=== PATIENT | female | born 1950 | race Hispanic/Latino ===

== ENCOUNTER 2017-02-01 01:17 | Observation (INO) | payer BC, MEDICARE ==
[2017-02-01 01:18] VITALS: BMI 26.6
--- NOTE | 2017-02-01 01:34 | ED PDOC ---
Arrival/HPI <Landry Conley - Last Filed: 02/01/17 03:20> - General Historian: Patient - History of Present Illness Time/Duration: 1-3 hours Symptom Onset: Gradual Symptom Course: Worsening Quality: Tightness Severity Level: Severe Activities at Onset: Light Context: Home <Meenakshi Glover - Last Filed: 02/01/17 05:22> - General Chief Complaint: Shortness Of Breath Time Seen by Provider: 02/01/17 01:27 - History of Present Illness Narrative History of Present Illness (Text): 02/01/17 02:20 This is a 67Y F with PMH of Hypertension and Hypercholesterolemia who came to emergency department for shortness of breath x 3 hours. The patient states she was sitting in her bed and could not fall asleep and was feeling shortness of breath with chest tightness. The tightness radiated up to her R jaw. She reports she has been feeling this tightness in her chest all day and has been having a dry cough, but has been worsening the past few hours. She denies sick contacts, fever, chills, n/v/d, numbness/tingling, or vision changes. She thought her cough was secondary to allergies. She did not do anything to make it better and does not know what makes it worse. (Meenakshi Glover) Past Medical History - Provider Review Nursing Documentation Reviewed: Yes - Travel History Have you recently traveled outside [place] w/in the past 3 mons?: No - Infectious Disease Hx of Infectious Diseases: None - Cardiac Hx Hypertension: Yes - HEENT Other/Comment: WEARS RX GLASSES - Renal Hx Renal Failure: (one kidney, renal problems) - Hematological/Oncological Hx Blood Transfusions: No Hx Blood Transfusion Reaction: No - Musculoskeletal/Rheumatological Hx Falls: Yes (Fell today) Hx Fractures: Yes (multiple fractures of bilateral feet) - Gastrointestinal Other/Comment: N/V FOR 5 DAYS 10-10-12 - Genitourinary/Gynecological Hx Genitourinary Disorders: Yes Hx Urinary Tract Infection: Yes (H/O) - Psychiatric Hx Depression: No Hx Emotional Abuse: No Hx Physical Abuse: No Hx Substance Use: No - Surgical History Hx Kidney Transplant: (donated a kidney) Hx Orthopedic Surgery: Yes (RIGHT FOOT SURGERY TORN LIGAMENT) - Anesthesia Hx Anesthesia Reactions: No Hx Malignant Hyperthermia: No - Suicidal Assessment Feels Threatened In Home Enviroment: No <Meenakshi Glover - Last Filed: 02/01/17 05:22> Family/Social History - Physician Review Nursing Documentation Reviewed: Yes Family/Social History: CAD/OK, Blood Clots Smoking Status: Former Smoker Hx Alcohol Use: No Hx Substance Use: No <Meenakshi Glover - Last Filed: 02/01/17 05:22> Allergies/Home Meds <Landry Conley - Last Filed: 02/01/17 03:20> <Meenakshi Glover - Last Filed: 02/01/17 05:22> Allergies/Adverse Reactions: Allergies No Known Allergies Allergy (Verified 02/01/17 01:33) Home Medications: Home Meds Medication Instructions Recorded Confirmed Atorvastatin [Lipitor] 10 mg PO DAILY 02/01/17 02/01/17 Furosemide [Lasix] 20 mg PO DAILY 02/01/17 02/01/17 amLODIPine [Norvasc] 10 mg PO DAILY 02/01/17 02/01/17 Review of Systems - Physician Review All systems were reviewed & negative as marked: Yes - Review of Systems Constitutional: Normal. absent: Fatigue, Fevers Eyes: Normal. absent: Vision Changes ENT: Normal. absent: Hearing Changes Respiratory: SOB, Cough. absent: Sputum Cardiovascular: Chest Pain. absent: Palpitations Gastrointestinal: Normal. absent: Abdominal Pain, Nausea, Vomiting Genitourinary Female: Normal Musculoskeletal: Normal. absent: Arthralgias, Myalgias Neurological: Dizziness. absent: Headache Psychiatric: Normal. absent: Anxiety, Depression <Meenakshi Glover - Last Filed: 02/01/17 05:22> Physical Exam <Landry oCnley - Last Filed: 02/01/17 03:20> Vital Signs Reviewed: Yes Temperature: Afebrile Blood Pressure: Normal Pulse: Tachycardic Respiratory Rate: Normal Appearance: Positive for: Well-Appearing, Non-Toxic, Comfortable Pain Distress: None Mental Status: Positive for: Alert and Oriented X 3 - Systems Exam Head: Present: Atraumatic, Normocephalic Pupils: Present: PERRL Extroacular Muscles: Present: EOMI Conjunctiva: Present: Normal Mouth: Present: Moist Mucous Membranes Neck: Present: Normal Range of Motion Respiratory/Chest: Present: Clear to Auscultation, Good Air Exchange. No: Respiratory Distress, Accessory Muscle Use, Wheezes, Rales, Rhonchi Cardiovascular: Present: Regular Rate and Rhythm, Normal S1, S2. No: Murmurs Abdomen: Present: Normal Bowel Sounds. No: Tenderness, Distention, Peritoneal Signs Back: Present: Normal Inspection Upper Extremity: Present: Normal Inspection. No: Cyanosis, Edema Lower Extremity: Present: Normal Inspection. No: Edema Neurological: Present: GCS=15, CN II-XII Intact, Speech Normal Skin: Present: Warm, Dry, Normal Color. No: Rashes Psychiatric: Present: Alert, Oriented x 3, Normal Insight, Normal Concentration <Meenakshi Glover - Last Filed: 02/01/17 05:22> Vital Signs Temp Pulse Resp BP Pulse Ox 02/01/17 05:04 223 H 02/01/17 03:34 98 H 22 151/76 H 94 L 02/01/17 01:30 22 94 L 02/01/17 01:28 99.3 F 111 H 24 147/69 99 Medical Decision Making - Lab Interpretations I have reviewed the lab results: Yes - RAD Interpretation Director Volunteer Services: ED Physician - EKG Interpretation Interpreted by ED Physician: Yes Type: 12 lead EKG <Landry Conley - Last Filed: 02/01/17 03:20> Re-evaluation Time: 03:37 Reassessment Condition: Improved - Lab Interpretations I have reviewed the lab results: Yes Interpretation: Abnormal lab values (leukocytosis) <Meenakshi Glover - Last Filed: 02/01/17 05:22> ED Course and Treatment: Impression: Pt seen and evaluated with medical orderly. Pt, whose past medical history includes hypertension and hyperlipidemia, presents for shortness of breath and chest tightness with dry cough. Aware and agree with HPI, clinical findings, plan, and management. Plan: -- EKG -- CXR -- Labs, cardiac enzymes, D-dimer -- Reassess and disposition (Landry Conley) 02/01/17 02:27 Impression: This is a 67Y F with PMH of Hypertension and Hypercholesterolemia who came to emergency department for shortness of breath x 3 hours. Differential Diagnosis included but are not limited to: ACS v. PE v. pneumonia Plan: -- EKG -- CXR -- CBC, CMP, D-dimer, Cardiac ISO -- Reassess and disposition EKG: Ordered, reviewed, and independently interpreted the EKG. Rate : 106 BPM Rhythm : Sinus tachycardia Interpretation : No ST-segment elevations or depressions, no T-wave inversions, QT prolongation at 502ms Comparison : No previous EKG for comparison. CXR showed no active disease. Progress Notes: 02/01/17 03:37 Patient reports SOB improved. D-dimer elevated. CTA ordered. Pt has mild leukocytosis and hypokalemia. 02/01/17 05:07 CT Angiography Chest With Intravenous Contrast COMPARISON: DX - CHEST PORTABLE 02/01/2017 2:05:50 AM FINDINGS: No pulmonary emboli in the main pulmonary arteries. No emboli identified in the arterial branches however patient motion results in volume averaging through adjacent lung producing heterogeneity of numerous distal branches limiting evaluation. No aortic dissection or aneurysm. No pleural or pericardial effussions. Faint density along the right pulmonary fissure image 67 not felt to represent an actual lesion. Bibasilar atelectasis/scarring. Clip adjacent to the left adrenal gland. IMPRESSION: No acute findings. No pulmonary emboli identified although study slightly limited by patient motion Patient will be admitted for observation. Discussed results and plan to admit with patient who expresses understanding. All questions answered and there is agreement with the plan. Spoke with Dr. Chapman who will accept the patient into his service. (Meenakshi Glover) - Lab Interpretations Lab Results: 02/01/17 02:10 02/01/17 02:10 Lab Results 02/01/17 02:10: PT 11.1, INR 1.03, D-Dimer, Quantitative 1.64 H 02/01/17 02:10: Sodium 141, Potassium 3.5 L, Chloride 103, Carbon Dioxide 23, Anion Gap 19, BUN 22 H, Creatinine 1.0, Est GFR ( Amer) > 60, Est GFR ( Non-Af Amer) 55, Random Glucose 158 H, Calcium 9.3, Total Bilirubin 0.6, AST 22 , ALT 28, Alkaline Phosphatase 37 L, Lactate Dehydrogenase 560, Total Creatine Kinase 117, Troponin I < 0.01, Total Protein 7.3, Albumin 4.4, Globulin 2.9, Albumin/Globulin Ratio 1.5 02/01/17 02:10: WBC 12.5 H D, RBC 4.39, Hgb 13.3, Hct 39.8, MCV 90.7, MCH 30.3, MCHC 33.4, RDW 14.6 H, Plt Count 203, MPV 10.6, Gran % 87.0 H, Lymph % (Auto) 8.5 L, [place] % (Auto) 4.2, Eos % (Auto) 0.2 L, Baso % (Auto) 0.1, Gran # 10.88 H , Lymph # 1.1 L, [place] # 0.5, Eos # 0.0, Baso # 0.01 - RAD Interpretation Radiology Orders: 02/01/17 01:43 CXR [CHEST PORTABLE] [RAD] Stat 02/01/17 03:23 ANGIO CHEST PE PROTOCOL [CT] Stat - Medication Orders Current Medication Orders: Discontinued Medications Iodixanol (Visipaque 320 Mg/Ml 100 Ml) Confirm Administered Dose 100 ml IV .STK- MED ONE Stop: 02/01/17 03:43 Potassium Chloride (K-Dur 20 Meq Er Tab) 20 meq PO STAT STA Stop: 02/01/17 04:37 - PA / [employer]SULTANT / Resident Statement / has reviewed & agrees with the documentation as recorded. / has examined the patient and agrees with the treatment plan. <Landry Conley - Last Filed: 02/01/17 03:20> Disposition/Present on Arrival <Landry Conley - Last Filed: 02/01/17 03:20> - Present on Arrival Any Indicators Present on Arrival: No History of DVT/PE: No History of Uncontrolled Diabetes: No Urinary Catheter: No History Surgical Site Infection Following: None - Disposition Have Diagnosis and Disposition been Completed?: Yes Disposition Time: 05:00 Patient Plan: Admission <Meenakshi Glover - Last Filed: 02/01/17 05:22> - Disposition Diagnosis: Shortness of breath Disposition: HOSPITALIZED Patient Problems: Current Active Problems Problem Status Onset Shortness of breath Acute Condition: FAIR Forms: [email or web address] ([place])
[2017-02-01 02:24] LABS: BASO # 0.01 K/mm3 (0.0-2.0); BASO % 0.1 % (0.0-3.0); EOS % 0.2 % (1.5-5.0); GRAN # 10.88 (1.4-6.5); HEMATOCRIT 39.8 % (36.0-48.0); LYMPH # 1.1 (1.2-3.4); LYMPH % 8.5 % (22.0-35.0); MEAN CELL VOLUME 90.7 fl (80.0-105.0); MEAN CORPUSCULAR HEMOGLOBIN 30.3 pg (25.0-35.0); MEAN CORPUSCULAR HGB CONC 33.4 g/dl (31.0-37.0); MEAN PLATELET VOLUME 10.6 fl (7.0-11.0); MONO # 0.5 (0.1-0.6); MONO % 4.2 % (1.0-6.0); RED CELL DISTRIBUTION WIDTH 14.6 % (11.5-14.5); WHITE BLOOD COUNT 12.5 10^3/ul (4.5-11.0)
[2017-02-01 02:31] LABS: INR 1.03 (0.93-1.08)
[2017-02-01 02:39] LABS: D DIMER 1.64 mg/L FEU (0-0.50)
[2017-02-01 02:58] LABS: ALB/GLOB RATIO 1.5 (1.1-1.8); ALKALINE PHOSPHATASE 37 U/L (38-126); ALT/SGPT 28 U/L (7-56); AST/SGOT 22 U/L (14-36); BILIRUBIN,TOTAL 0.6 mg/dL (0.2-1.3); BLOOD UREA NITROGEN 22 mg/dL (7-21); CALCIUM 9.3 mg/dL (8.4-10.5); CARBON DIOXIDE 23 mmol/L (21-33); CHLORIDE 103 mmol/L (98-107); GFR AFRICAN-AMERICAN > 60; GLUCOSE,RANDOM 158 mg/dL (70-110); POTASSIUM 3.5 mmol/L (3.6-5.0); SODIUM 141 mmol/L (132-148); TOTAL PROTEIN 7.3 g/dL (5.8-8.3)
[2017-02-01 03:22] LABS: TROPONIN I < 0.01 ng/mL
[2017-02-01] MEDS ORDERED: Iodixanol 320 MG/ML 100 ML BOTTLE IV ONE (03:42)
--- NOTE | 2017-02-01 05:06 | CT ---
EXAM: CT Angiography Chest With Intravenous Contrast EXAM DATE/TIME: 02/01/2017 3:23 AM CLINICAL HISTORY: 67 years old, female; Signs and symptoms; Shortness of breath; Prior surgery; Surgery type: Breast SX TECHNIQUE: Axial computed tomographic angiography images of the chest with intravenous contrast using pulmonary embolism protocol. All CT scans at this facility use one or more dose reduction techniques, viz.: automated exposure control; ma/kV adjustment per patient size (including targeted exams where dose is matched to indication; i.e. head); or iterative reconstruction technique. MIP reconstructed images were created and reviewed. Coronal and sagittal reformatted images were created and reviewed. CONTRAST: 96 mL of VISI 320 administered intravenously. COMPARISON: DX - CHEST PORTABLE 02/01/2017 2:05:50 AM FINDINGS: No pulmonary emboli in the main pulmonary arteries. No emboli identified in the arterial branches however patient motion results in volume averaging through adjacent lung producing heterogeneity of numerous distal branches limiting evaluation. No aortic dissection or aneurysm. No pleural or pericardial effussions. Faint density along the right pulmonary fissure image 67 not felt to represent an actual lesion. Bibasilar atelectasis/scarring. Clip adjacent to the left adrenal gland. IMPRESSION: No acute findings. No pulmonary emboli identified although study slightly limited by patient motion.
[2017-02-01] MEDS: Potassium Chloride 20 mEq ER Tab PO STA ×2 (05:30→08:55)
--- NOTE | 2017-02-01 08:03 | RAD ---
HISTORY: shortness of breath COMPARISON: Comparison made with prior chest radiograph 02/06/2014. Comparison made with CTA chest 02/01/2017 FINDINGS: LUNGS: Mild left basilar atelectasis. Slight elevation right hemidiaphragm. . . PLEURA: No significant pleural effusion identified, no pneumothorax apparent. CARDIOVASCULAR: Normal. OSSEOUS STRUCTURES: No significant abnormalities. VISUALIZED UPPER ABDOMEN: Normal. OTHER FINDINGS: None. IMPRESSION: Mild atelectasis left lung base.
[2017-02-01 10:12] LABS: TROPONIN I < 0.01 ng/mL
--- NOTE | 2017-02-01 11:15 | CON ---
DATE: 02/01/2017 CARDIOLOGY CONSULTATION HISTORY OF PRESENT ILLNESS: The patient is a 67-year-old woman who presents with shortness of breath and classic anginal symptoms at rest. PAST MEDICAL HISTORY: The patient's past medical history is notable for hypertension and hypercholesterolemia. No previous ulcers were noted in the past. No previous bleeding history. No previous myocardial infarction. SOCIAL HISTORY: The patient is a former smoker. REVIEW OF SYSTEMS: A 14-point review of systems was reviewed. No additional symptoms are noted from above. PHYSICAL EXAMINATION: VITAL SIGNS: Blood pressure is 150/78 and heart rate in the 80s. NECK: Negative JVD. LUNGS: Without rales. HEART: Reveals S1 and S2. EXTREMITIES: Without edema. LABORATORY DATA: Hemoglobin is 13.5 and white count is 12.5. Chemistries: BUN and creatinine are unremarkable. Glucose is 158 with two troponins that are negative. DIAGNOSTIC DATA: EKG shows normal sinus rhythm with nonspecific ST-T changes. IMPRESSION 1. Unstable angina. 2. Coronary artery disease. 3. Chronic obstructive pulmonary disease. 4. Hypertension. 5. Hypercholesterolemia. 6. History of a single solitary kidney. PLAN: Given these findings, discussed cardiac catheterization with the patient in detail. Risks and benefits were discussed in detail. We will load the patient with aspirin and Plavix. The patient is scheduled for cardiac catheterization in the morning. Carlos Cisneros MD
--- NOTE | 2017-02-01 18:58 | CARD ---
APPROVED REPORT EKG Measurement Heart [id number] <Conclusion> Sinus tachycardia ST & T wave abnormality, nonspecific Abnormal ECG
[2017-02-01 19:09] LABS: TROPONIN I < 0.01 ng/mL
--- NOTE | 2017-02-02 02:38 | HP ---
LOCATION: The patient is a 67-year-old female in room #269, bed #1. HISTORY OF PRESENT ILLNESS: She was admitted through the emergency room with a chief complaint of shortness of breath and classical anginal symptoms at rest. PAST MEDICAL HISTORY: Remarkable for hypertension and hypercholesteremia and no previous ulcer history. She has also had multiple fractures of her toes without trauma. The impression at this time unstable angina, coronary artery disease, COPD, hypertension and hypercholesteremia. ALLERGIES: NO KNOWN ALLERGIES. SOCIAL HISTORY: The patient is a former smoker. PHYSICAL EXAMINATION VITAL SIGNS: Temperature of 98 degrees, pulse rate of 85, blood pressure 150/78, respiratory rate of 20 with an O2 saturation of 95% on a nasal cannula. HEENT: PERRLA, EOMI. No icterus present. NECK: Supple with full range of motion. No bruits are appreciated. No JVD is appreciated. LUNGS: Clear to auscultation. HEART: Regular rate and rhythm. No murmurs, rubs or gallops. ABDOMEN: Soft. It is nontender and bowel sounds are normoactive. EXTREMITIES: Showed no deformities. No edema and there is full range of motion. NEUROLOGICALLY: There are no focal deficits. LABORATORY VALUES: WBC of 12.5 with an 87% of granulocytes. Coagulation is within normal limits. D-dimer of 1.64. This is due to an elevated BUN of 22. The patient's potassium is 3.5. A chest CT was performed which was negative. A chest x-ray is also negative. Dr. Carlos Cisneros saw the patient and the patient will be cath'ed tomorrow in the morning. CURRENT DIAGNOSES: 1. Unstable angina. 2. Hyperlipidemia. 3. Hypertension. Moi Chapman MD
[2017-02-02] MEDS ORDERED: Albuterol-Ipratrop 3 mg / 0.5 (3 ml) UD IH STA (05:33)
--- NOTE | 2017-02-02 05:49 | CP.PCM.PN ---
Subjective - Date & Time of Evaluation Date of Evaluation: 02/02/17 Time of Evaluation: 05:35 - Subjective Subjective: Patient is admitted for shortness of breath and chest tightness. She is seen stat for her c/o shortness of breath and cough which just started.Denies c/o chest pain. She is scheduled to go for cardiac cath in a couple of hours. VS :BP 137/70 P 87 RR19 Temp 98.2 Objective - Vital Signs/Intake and Output Vital Signs (last 24 hours): Temp Pulse Resp BP Pulse Ox 98.8 F 83 18 156/88 H 96 02/02/17 00:01 02/02/17 04:15 02/02/17 00:01 02/02/17 00:01 02/02/17 00:01 - Medications Medications: Current Medications Albuterol/Ipratropium (Duoneb 3 Mg/0.5 Mg (3 Ml) Ud) 3 ml IH STAT STA Stop: 02/02/17 05:34 Alprazolam (Xanax) 0.5 mg PO HS PRN; Protocol PRN Reason: Anxiety Last Admin: 02/01/17 21:10 Dose: 0.5 mg Amlodipine Besylate (Norvasc) 10 mg PO DAILY [facility] Last Admin: 02/01/17 09:57 Dose: 10 mg Aspirin (Aspirin Chewable) 81 mg PO DAILY [facility] Atorvastatin Calcium (Lipitor) 10 mg PO DIN [facility] Last Admin: 02/01/17 17:37 Dose: 10 mg Clopidogrel Bisulfate (Plavix) 75 mg PO DAILY [facility] - Labs Labs: PT 11.1 Seconds (9.9-11.8) 02/01/17 02:10 INR 1.03 (0.93-1.08) 02/01/17 02:10 - Constitutional Appears: Other (mildly dyspneic) - Head Exam Head Exam: NORMAL INSPECTION - Eye Exam Eye Exam: Normal appearance, PERRL - ENT Exam ENT Exam: Mucous Membranes Moist - Neck Exam Neck Exam: Normal Inspection - Respiratory Exam Respiratory Exam: Wheezes (scattered wheezes,bibasilar crepitations) - Cardiovascular Exam Cardiovascular Exam: REGULAR RHYTHM - GI/Abdominal Exam GI & Abdominal Exam: Soft, Normal Bowel Sounds - Extremities Exam Extremities Exam: Normal Inspection. absent: Calf Tenderness, Pedal Edema - Neurological Exam Neurological Exam: Alert, Awake, Oriented x3 - Psychiatric Exam Psychiatric exam: Normal Affect - Skin Skin Exam: Dry, Normal Color, Warm Assessment and Plan - Assessment and Plan (Free Text) Assessment: Shortness of breath and cough Plan: Chest Xray portable stat Duoneb treatment stat Patient states she feels better after the nebulizer treatment.
[2017-02-02 06:11] LABS: EOS % 0.5 % (1.5-5.0); GRAN # 7.27 (1.4-6.5); GRAN % 82.6 % (50.0-68.0); HEMATOCRIT 39.9 % (36.0-48.0); LYMPH # 0.8 (1.2-3.4); LYMPH % 9.1 % (22.0-35.0); MEAN CELL VOLUME 91.5 fl (80.0-105.0); MEAN CORPUSCULAR HEMOGLOBIN 30.3 pg (25.0-35.0); MEAN CORPUSCULAR HGB CONC 33.1 g/dl (31.0-37.0); MEAN PLATELET VOLUME 10.1 fl (7.0-11.0); MONO # 0.7 (0.1-0.6); MONO % 7.8 % (1.0-6.0); RED CELL DISTRIBUTION WIDTH 14.8 % (11.5-14.5); WHITE BLOOD COUNT 8.8 10^3/ul (4.5-11.0)
[2017-02-02 06:24] LABS: ALB/GLOB RATIO 1.4 (1.1-1.8); ALKALINE PHOSPHATASE 31 U/L (38-126); ALT/SGPT 29 U/L (7-56); AST/SGOT 31 U/L (14-36); BILIRUBIN,TOTAL 0.4 mg/dL (0.2-1.3); BLOOD UREA NITROGEN 25 mg/dL (7-21); CALCIUM 9.2 mg/dL (8.4-10.5); CARBON DIOXIDE 28 mmol/L (21-33); CHLORIDE 107 mmol/L (98-107); GFR AFRICAN-AMERICAN > 60; GLUCOSE,RANDOM 107 mg/dL (70-110); POTASSIUM 4.1 mmol/L (3.6-5.0); SODIUM 146 mmol/L (132-148)
[2017-02-02] MEDS ORDERED: Lidocaine 2% Inj (20ml) ONE (06:28)
[2017-02-02] MEDS ORDERED: Nitroglycerin 50mg in D5W 50 MG/250 ML BOTTLE IV ONE (06:29)
[2017-02-02] MEDS ORDERED: Iodixanol 320 MG/ML 200 ML BOTTLE IV ONE (06:29)
[2017-02-02] MEDS ORDERED: Iodixanol 320 MG/ML 100 ML BOTTLE IV ONE (06:29)
[2017-02-02] MEDS ORDERED: Iohexol 350mgl/ml 50 ML ONE (06:29)
[2017-02-02] MEDS ORDERED: Phenylephrine 10 mg/ml Inj ONE (06:29)
[2017-02-02 06:41] VITALS: O2SAT 97
[2017-02-02] MEDS ORDERED: Midazolam 2 MG/2 ML VIAL ONE ×3 (07:07→08:09)
--- NOTE | 2017-02-02 08:33 | RAD ---
HISTORY: shortness of breath and cough COMPARISON: 02/01/2017 FINDINGS: LUNGS: The lungs are well inflated and clear. PLEURA: No significant pleural effusion identified, no pneumothorax apparent. CARDIOVASCULAR: Normal. OSSEOUS STRUCTURES: Within normal limits for the patient's age. VISUALIZED UPPER ABDOMEN: Normal. OTHER FINDINGS: None. IMPRESSION: No active pulmonary disease.
[2017-02-02] MEDS ORDERED: Sodium Chloride 0.9% 1,000 ML IV SCH (09:00)
--- NOTE | 2017-02-02 10:11 | CARDCATH ---
PROCEDURE DATE: 02/02/2017 PERFORMING PHYSICIAN: Carlos Cisneros MD HISTORY: The patient is a 67-year-old woman who presents with chest pain and intermittent shortness of breath while at rest. Because of her cardiac risk factors including COPD, a long history of smoking, history of hypertension, and hypercholesterolemia, a cardiac catheterization was recommended. PROCEDURE PERFORMED: Left heart catheterization with coronary angiography, left ventriculogram, and supraaortic valvular injection were performed. COMPLICATIONS: There are no complications. FINDINGS ON CATHETERIZATION REVEALED: 1. Right dominant circulation. 2. The RCA revealed intimal irregularities without significant stenosis. 3. The left main artery was unremarkable. 4. The LAD and diagonal vessels were free of significant disease. 5. Circumflex artery and obtuse marginal branches were free of significant disease. 6. Left ventriculogram revealed minimal LV hypokinesis with an estimated ejection fraction of approximately 50%. 7. Supraaortic valvular injection revealed trace aortic insufficiency. 8. Angio-Seal was used to close the femoral artery site. The patient tolerated the procedure well. SUMMARY: In summary, the procedure revealed low normal LV function consistent with early cardiomyopathy. Unremarkable coronary arteries with mild intimal irregularities. Trace aortic insufficiency. Given these findings, I have discussed these findings with the patient in detail. I have advised follow up with pulmonary consultation to evaluate her intermittent shortness of breath. In addition, I have recommended an exercise program, which would help her hypertension as well as a cardiovascular fitness. The patient and family have agreed and have arranged for cardiac rehab to evaluate the patient for phase III cardiac rehab. Carlos Cisneros MD
--- NOTE | 2017-02-02 12:19 | DS ---
HISTORY OF PRESENT ILLNESS: The patient is a 67-year-old female who is in room number 269, bed 1. The patient was initially admitted with progressively increasing shortness of breath as well as chest pain. The patient has a previous history of hypertension and hyperlipidemia. She also has a history of multiple fractured toes without trauma. The patient was catheterized this morning, she has normal coronary arteries. PHYSICAL EXAMINATION: VITAL SIGNS: Stable. Her temperature is 98 degrees, pulse rate is 87, blood pressure is 137/70, respiratory rate of 20 and an O2 saturation of 97% on room air. HEENT: Negative. NECK: Supple with no bruits. LUNGS: Clear bilaterally. HEART: Regular rate and rhythm. ABDOMEN: Benign. EXTREMITIES: Showed no edema. NEUROLOGIC: The patient is intact. LABORATORY DATA: H and H is 13.2 and 39.9. Chemistry is normal with the exception of BUN of 25. The patient will be discharged home this afternoon approximately 2 o' clock or 3 o' clock. DISCHARGE DIAGNOSES: 1. Chest pain. 2. Hypertension. 3. Hyperlipidemia. Moi Chapman MD
[2017-02-02 12:45] VITALS: TEMP 98.2
[2017-02-02 12:50] VITALS: RESP 18
[2017-02-02 14:38] VITALS: PULSE 87
[2017-02-02 15:32] VITALS: BP 148/86
== END 2017-02-02 16:39 | disposition home or self-care (01) ==
LOC: ED 01:17 → ERH 05:12 → 2RNO 06:47
PROVIDERS: ADMIT Student in an Organized Health Care Education/Training Program; ATTEND Student in an Organized Health Care Education/Training Program
DX: I25.110 Atherosclerotic heart disease of native coronary artery with unstable angina pectoris (principal); I42.9 Cardiomyopathy, unspecified; I35.1 Nonrheumatic aortic (valve) insufficiency; I10 Essential (primary) hypertension; E78.5 Hyperlipidemia, unspecified; J44.9 Chronic obstructive pulmonary disease, unspecified; E78.00 Pure hypercholesterolemia, unspecified; Z87.891 Personal history of nicotine dependence
CPT/HCPCS: 36415; 71010; 71275; 80053; 82550; 83615; 84484; 85025; 85378; 85610; 85730; 93005; 93458; 93567; 94640; 99152; 99285; C1760; C1769; C2629; G0378; J1644; J2250; J3010; J7040; Q9967